=== PATIENT | male | born 1990 | race Caucasian/White ===

== ENCOUNTER 2016-07-11 09:20 | Emergency (ER) | payer OTHER ==
[~2016-07-11] VITALS: Ht 180.3 cm; Wt 70.0 kg
[2016-07-11 09:40] VITALS: BP 132/73; PULSE 73; RESP 14; TEMP 98.3; O2SAT 99
[2016-07-11 10:34] LABS: AUTOMATED NEUTROPHIL # 4.6 TH/MM3 (1.8-7.7); BASOPHIL % 0.4 % (0.0-2.0); EOSINOPHIL % 0.2 % (0.0-4.0); HEMATOCRIT 41.8 % (39.0-51.0); HEMO FLAGS DIFF FINAL; LYMPH % 19.1 % (9.0-44.0); LYMPHOCYTE # 1.2 TH/MM3 (1.0-4.8); MEAN CELL VOLUME 85.4 FL (80.0-100.0); MEAN CORPUSCULAR HEMOGLOBIN 28.8 PG (27.0-34.0); MEAN CORPUSCULAR HGB CONC 33.7 % (32.0-36.0); MONO % 8.7 % (0.0-8.0); NEUT % 71.6 % (16.0-70.0); PLATELET COUNT 203 TH/MM3 (150-450); RED CELL DISTRIBUTION WIDTH 12.6 % (11.6-17.2); WHITE BLOOD COUNT 6.4 TH/MM3 (4.0-11.0)
[2016-07-11 10:45] LABS: APTT (PATIENT) 32.4 SEC (24.3-30.1); INTERNATIONAL NORMALIZED RATIO 1.3 RATIO; PROTHROMBIN TIME - PATIENT 14.1 SEC (9.8-11.6)
[2016-07-11 10:50] LABS: ALT (GPT) 20 U/L (12-78); ANION GAP 6 MEQ/L (5-15); AST (GOT) 15 U/L (15-37); BLOOD UREA NITROGEN 10 MG/DL (7-18); CHLORIDE 101 MEQ/L (98-107); GLOMERULAR FILTRATION RATE 89 ML/MIN (>89); POTASSIUM 3.6 MEQ/L (3.5-5.1); SODIUM (NA) 137 MEQ/L (136-145)
[2016-07-11 10:52] LABS: ALKALINE PHOSPHATASE 89 U/L (45-117); TOTAL BILIRUBIN ADULT 0.7 MG/DL (0.2-1.0)
--- NOTE | 2016-07-11 10:56 | PD ---
HPI Chief Complaint: GI Complaint Time Seen by Provider: 10:33 Travel History International Travel<30 days: No Contact w/Intl Traveler<30days: No Traveled to known affect area: No History of Present Illness HPI Patient is a 26-year-old male who presents to emergency room with complaints of into his rectum for the past 4 days. Patient reports that he bright red blood per rectum with having bowel movements, is that it hurts for him to sit down, reports pain to his rectum when having a bowel movement. Patient reports that he is sexually active and does participate and anal sex, reports that the last time he had anal sex was 3 weeks ago. Patient reports that he is concerned that he may have an STD as he googled this online. Patient reports that he went to the [facility] department today and he was told to come to the emergency room for treatment and evaluation of possible STDs. [facility] Past Medical History Medical History: Denies Significant Hx Past Surgical History Surgical History: No Previous Surgery Social History Alcohol Use: Yes (OCC) Tobacco Use: No Substance Use: No Allergies-Medications (Allergen,Severity, Reaction): Coded Allergies: No Known Allergies (Unverified , 07/11/16) Reported Meds & Prescriptions Reported Meds & Active Scripts Active No Active Prescriptions or Reported Medications Review of Systems General / Constitutional: No: Fever Eyes: No: Visual changes HENT: No: Headaches Cardiovascular: No: Chest Pain or Discomfort Respiratory: No: Shortness of Breath Gastrointestinal: Positive: Hematochezia, No: Nausea, Vomiting, Abdominal Pain Genitourinary: No: Dysuria, Discharge Musculoskeletal: No: Pain Skin: No Rash Neurologic: No: Weakness Psychiatric: No: Depression Endocrine: No: Polydipsia Hematologic/Lymphatic: No: Easy Bruising Physical Exam Narrative GENERAL: No acute distress, nontoxic SKIN: Warm and dry. HEAD: Atraumatic. Normocephalic. EYES: Pupils equal and round. No scleral icterus. No injection or drainage. ENT: No nasal bleeding or discharge. Mucous membranes pink and moist. NECK: Trachea midline. No JVD. CARDIOVASCULAR: Regular rate and rhythm. No murmur appreciated. RESPIRATORY: No accessory muscle use. Clear to auscultation. Breath sounds equal bilaterally. GASTROINTESTINAL: Abdomen soft, non-tender, nondistended. Hepatic and splenic margins not palpable. Patient with external hemorrhoids which are nonthrombosed on exam, exam performed with RN at bedside MUSCULOSKELETAL: No obvious deformities. No clubbing. No cyanosis. No edema. NEUROLOGICAL: Awake and alert. No obvious cranial nerve deficits. Motor grossly within normal limits. Normal speech. PSYCHIATRIC: Appropriate mood and affect; insight and judgment normal. Data Data Last Documented VS Vital Signs Date Time Temp Pulse Resp B/P Pulse Ox O2 Delivery O2 Flow Rate FiO2 07/11/16 10:10 17 07/11/16 09:40 98.3 73 132/73 99 Orders Complete Blood Count With Diff (07/11/16 10:05) Comprehensive Metabolic Panel (07/11/16 10:05) Prothrombin Time / Inr (Pt) (07/11/16 10:05) Act Partial Throm Time (Ptt) (07/11/16 10:05) Iv Access Insert/Monitor (07/11/16 10:05) Gc And Chlamydia Pcr (07/11/16 10:20) Ketorolac Inj (Toradol Inj) (07/11/16 11:00) Treponema Pallidum Abs(Fta) (07/11/16 10:46) Labs Laboratory Tests Test 07/11/16 10:15 White Blood Count 6.4 TH/MM3 Red Blood Count 4.90 MIL/MM3 Hemoglobin 14.1 GM/DL Hematocrit 41.8 % Mean Corpuscular Volume 85.4 FL Mean Corpuscular Hemoglobin 28.8 PG Mean Corpuscular Hemoglobin 33.7 % Concent Red Cell Distribution Width 12.6 % Platelet Count 203 TH/MM3 Mean Platelet Volume 8.2 FL Neutrophils (%) (Auto) 71.6 % Lymphocytes (%) (Auto) 19.1 % Monocytes (%) (Auto) 8.7 % Eosinophils (%) (Auto) 0.2 % Basophils (%) (Auto) 0.4 % Neutrophils # (Auto) 4.6 TH/MM3 Lymphocytes # (Auto) 1.2 TH/MM3 Monocytes # (Auto) 0.6 TH/MM3 Eosinophils # (Auto) 0.0 TH/MM3 Basophils # (Auto) 0.0 TH/MM3 CBC Comment DIFF FINAL Differential Comment Prothrombin Time 14.1 SEC Prothromb Time International 1.3 RATIO Ratio Activated Partial 32.4 SEC Thromboplast Time Sodium Level 137 MEQ/L Potassium Level 3.6 MEQ/L Chloride Level 101 MEQ/L Carbon Dioxide Level 30.0 MEQ/L Anion Gap 6 MEQ/L Blood Urea Nitrogen 10 MG/DL Creatinine 1.01 MG/DL Estimat Glomerular Filtration 89 ML/MIN Rate Random Glucose 88 MG/DL Calcium Level 9.1 MG/DL Total Bilirubin 0.7 MG/DL Aspartate Amino Transf 15 U/L (AST/SGOT) Alanine Aminotransferase 20 U/L (ALT/SGPT) Alkaline Phosphatase 89 U/L Total Protein 8.3 GM/DL Albumin 3.8 GM/DL MDM Medical Decision Making Medical Screen Exam Complete: Yes Emergency Medical Condition: Yes Interpretation(s) Vital Signs Date Time Temp Pulse Resp B/P Pulse Ox O2 Delivery O2 Flow Rate FiO2 07/11/16 10:10 17 07/11/16 09:40 98.3 73 14 132/73 99 Differential Diagnosis Urethritis, syphilis, external hemorrhoids Narrative Course Patient is a 26-year-old male who presents to emergency room with complaints of rectal pain for the past 4 days. Patient reports that he has noticed bright red blood per rectum after having a bowel movement over the past 4 days. Patient concerned for possible syphilis versus gonorrhea chlamydia. He did get to the [facility] and was told to go to the emergency room for treatment and evaluation of symptoms. Patient nontoxic on evaluation, patient with no abdominal pain, denies lightheadedness or dizziness. Rectal exam was performed with RN at bedside, patient with external hemorrhoids, external hemorrhoids with no obvious bleeding at this time, they're nonthrombosed. Rectal pain most likely from hemorrhoids. Labs as well as GC and syphilis obtained as patient did attempt to get these studies today and patient was told to go to the ER. Will not treat at this time as patient's rectal pain most likely from hemorrhoids. Patient understands need to refrain from sexual activity until resolution of hemorrhoids as well as he understands need to follow up with cultures from today. If Cultures are positive, he as well as sexual partners will need to be treated. I reviewed all labs and studies with patient in detail. Patient's symptoms most likely from hemorrhoids. Patient with no urethral discharge, will hold off on treating for possible GC and syphilis at this time. Cultures were sent. Patient will call medical records and 3-5 days to find out results of all cultures. Diagnosis Primary Impression: External hemorrhoid Additional Impressions: Screening for STD (sexually transmitted disease) Rectal or anal pain Patient Instructions: General Instructions Additional Instructions: Please follow-up with all cultures from today Please call medical records in 3-5 days for follow-up on cultures, if cultures are positive, you'll need to be treated as well as all sexual partners Return to emergency room as needed or if symptoms progress or worsen For your hemorrhoids, please use SITZ baths, preparation H suppositories, witch lis wipes. Please follow-up with a checking department supervisor as needed. Scripts Hydrocortisone Acetate Supp (Anucort-Hc Supp)25 Mg Supp25 Mg RECTAL TID 10 Days Ref 0 Prov:Roselia Farfan DO 07/11/16 Disposition: 01 DISCHARGE HOME Condition: Stable Roselia Farfan DO Jul 11, 2016 10:56
[2016-07-11] MEDS ORDERED: KETOROLAC TROMETHAMINE 30 MG/ML (IVP) VIAL IV PUSH ONE (11:00)
[2016-07-11] MEDS ORDERED: ANUC25SU RECTAL (11:48)
[2016-07-11 12:31] VITALS: BP 117/75
[2016-07-11 14:27] LABS: CHLAMYDIA PCR NOT DETECTED (NOT DETECT); NEISSERIA PCR NOT DETECTED (NOT DETECT)
== END 2016-07-11 12:38 | disposition home or self-care (01) ==
LOC: NEPC 09:20
DX: K64.4 Residual hemorrhoidal skin tags (principal); K62.89 Other specified diseases of anus and rectum; Z11.3 Encounter for screening for infections with a predominantly sexual mode of transmission
CPT/HCPCS: 80053; 85025; 85610; 85730; 86780; 87491; 87591; 96374; 99283; J1885